=== PATIENT | female | born 1990 | race Caucasian/White ===

== ENCOUNTER 2020-12-24 21:53 | Emergency (ER) | payer OTHER ==
[~2020-12-24] VITALS: Ht 162.6 cm; Wt 95.3 kg
--- NOTE | 2020-12-24 22:00 | NUR ---
PT AAOX4. BIBSELF C/O SI WITH PLAN TO CUT WRIST. -HI. PLACED IN BED 14 ON MONITOR AND PULSE OX. AWAITING ER MD FOR EVAL. AWAITING ORDERS. SITTER AT BEDSIDE.
--- NOTE | 2020-12-24 22:01 | NUR ---
PT PROVIDED WITH WARM BLANKETS FOR COMFORT.
--- NOTE | 2020-12-24 22:12 | NUR ---
PIG FARMER AT BEDSIDE
--- NOTE | 2020-12-24 22:18 | NUR ---
CALLED FOR COVID SWAB
[2020-12-24 22:26] LABS: BASOPHILS # (AUTO) 0.1 K/uL (0.0-0.2); BASOPHILS % (AUTO) 0.8 % (0.0-2.0); EOSINOPHILS % (AUTO) 6.7 % (0.0-6.0); HEMATOCRIT 34 % (33-45); HEMOGLOBIN 11.9 g/dL (11.5-14.8); LYMPHOCYTES # (AUTO) 2.1 K/uL (0.8-4.8); LYMPHOCYTES % (AUTO) 23.6 % (20.0-44.0); MEAN CORPUSCULAR HGB CONC 35 g/dl (31.0-36.0); MEAN CORPUSCULAR VOLUME 92 fL (82-100); MONOCYTES # (AUTO) 0.7 K/uL (0.1-1.30); NEUTROPHILS # (AUTO) 5.5 K/uL (1.8-8.9); NEUTROPHILS % (AUTO) 60.9 % (43.0-81.0); PLATELET COUNT (AUTO) 166 K/uL (150-450); RED BLOOD CELL COUNT(AUTO) 3.69 MIL/uL (4.0-5.2)
[2020-12-24 22:44] LABS: CALCIUM, SERUM 8.7 mg/dL (8.5-10.1); CARBON DIOXIDE 28 mmol/L (21-32); CHLORIDE 105 mmol/L (98-107); CREATININE 0.7 mg/dL (0.6-1.3); GLUCOSE 92 mg/dL (74-106); POTASSIUM 4.1 mmol/L (3.5-5.1); SODIUM SERUM 140 mmol/L (136-145); UREA NITROGEN, BLOOD 10 mg/dL (7-18)
[2020-12-24 22:51] LABS: ALANINE AMINOTRANSFERASE 25 U/L (12-78); ALBUMIN 3.2 g/dL (3.4-5.0); ALKALINE PHOSPHATASE 117 U/L (46-116); ASPARTATE AMINOTRANSFERASE 16 U/L (15-37); BILIRUBIN,DIRECT 0.1 mg/dL (0.0-0.2); BILIRUBIN,TOTAL 0.3 mg/dL (0.2-1.0); TOTAL PROTEIN, SERUM 7.1 g/dL (6.4-8.2)
[2020-12-24 22:52] LABS: ACETAMINOPHEN < 2 ug/ml (10-30); ALCOHOL, BLOOD < 3 mg/dL (0-0)
[2020-12-24 23:47] LABS: BILIRUBIN,URINE Negative (NEGATIVE); COLOR,URINE YELLOW (YELLOW); LEUKOCYTE ESTERASE ,URINE Trace (NEGATIVE); NITRITE, URINE Negative (NEGATIVE); PROTEIN,URINE Negative (NEGATIVE); UGLUCOSE Negative (NEGATIVE); UROBILINOGEN,URINE 0.2 EU/dL (0.2)
--- NOTE | 2020-12-25 00:22 | NUR ---
PT PROVIDED WITH JUICE.
--- NOTE | 2020-12-25 00:33 | NUR ---
FACE SHEET AND CLINICALS WERE FAXED TO [facility]
--- NOTE | 2020-12-25 00:52 | NUR ---
CALLLED [facility] AND SPOKE TO ART, CLINICALS ARE REC'D
[2020-12-25 01:20] LABS: BACTERIA,URINE None seen /HPF (None Seen); RBC,URINE 0-2 /HPF (0-2); SQUAMOUS EPITHELIAL CELL,UR Few /HPF (None Seen); YEAST,URINE Few /HPF (None Seen)
--- NOTE | 2020-12-25 03:14 | NUR ---
ACCEPTED TO [facility] SEND PT AFTER 8AM MD: RICKI NUMBER FOR REPORT: [phone]
--- NOTE | 2020-12-25 03:26 | NUR ---
[facility] ARRANGED FOR 899
--- NOTE | 2020-12-25 07:46 | NUR ---
THE PATIENT IS SLEEPING IN ER BED #14. IN NO APPARENT DISTRESS. RESPIRATION REGULAR AND UNLABORED. WILL CONTINUE TO MONITOR THE PATIENT.
--- NOTE | 2020-12-25 07:58 | NUR ---
REPORT GIVEN TO NURSE JORDY FROM [facility]
--- NOTE | 2020-12-25 08:35 | NUR ---
THE PATIENT IS HAVING BREAKFAST. TOLERATES PROVIDED FOOD WELL.
--- NOTE | 2020-12-25 09:32 | NUR ---
CALLED [facility] NEW ETA 15 MINS PER OLINDA.
--- NOTE | 2020-12-25 10:09 | NUR ---
THE PATIENT IS TRANSFERED TO [facility] IN STABLE CONDITION VIA ARRANGED TRANSPO.
[2020-12-25 10:10] VITALS: BP 110/62
== END 2020-12-25 10:10 ==
LOC: ER 22:01
DX: R45.851 Suicidal ideations (principal); Z20.822 Contact with and (suspected) exposure to COVID-19; Z91.013 Allergy to seafood; F32.A Depression, unspecified; K21.9 Gastro-esophageal reflux disease without esophagitis
CPT/HCPCS: 36415; 80048; 80076; 80143; 80307; 80320; 81001; 84703; 85025; 87426; 99285; C9803; G0480

== ENCOUNTER 2020-12-29 00:36 | Emergency (ER) | payer OTHER ==
[~2020-12-29] VITALS: Ht 162.6 cm; Wt 95.3 kg
--- NOTE | 2020-12-29 00:50 | NUR ---
SHELLIE FROM [facility] C/O ABD PAIN. PATIENT ALERT AND ORIENTED X3. AMBULATORY WITH NON LABORED BREATHING. PLACED ON A MONITOR.
--- NOTE | 2020-12-29 00:56 | NUR ---
LINE ESTABLISHED BLOOD TAKEN AND SENT TO LAB.
[2020-12-29] MEDS ORDERED: KETOROLAC TROMETHAMINE INJ 30 MG/ML VIAL IV ONE (01:00)
[2020-12-29] MEDS ORDERED: IV NS 0.9% 500 ML BAG IV ONE (01:00)
[2020-12-29] MEDS ORDERED: ONDANSETRON HCL/PF 4 MG/2 ML VIAL IVP ONE (01:00)
--- NOTE | 2020-12-29 01:02 | NUR ---
URINE COLLECTED AND SENT TO THE LAB
[2020-12-29] MEDS ORDERED: KETOROLAC TROMETHAMINE 15 MG/ML VIAL ONE (01:12)
[2020-12-29] MEDS ORDERED: ONDANSETRON HCL/PF 4 MG/2 ML VIAL ONE (01:12)
[2020-12-29 01:13] LABS: BASOPHILS # (AUTO) 0.1 K/uL (0.0-0.2); BASOPHILS % (AUTO) 0.7 % (0.0-2.0); EOSINOPHILS % (AUTO) 6.3 % (0.0-6.0); HEMATOCRIT 34 % (33-45); HEMOGLOBIN 11.6 g/dL (11.5-14.8); LYMPHOCYTES # (AUTO) 2.1 K/uL (0.8-4.8); LYMPHOCYTES % (AUTO) 21.2 % (20.0-44.0); MEAN CORPUSCULAR HGB CONC 35 g/dl (31.0-36.0); MEAN CORPUSCULAR VOLUME 91 fL (82-100); MONOCYTES # (AUTO) 0.8 K/uL (0.1-1.30); MONOCYTES % (AUTO) 8.3 % (2.0-12.0); NEUTROPHILS # (AUTO) 6.4 K/uL (1.8-8.9); NEUTROPHILS % (AUTO) 63.5 % (43.0-81.0); PLATELET COUNT (AUTO) 162 K/uL (150-450)
[2020-12-29 01:22] LABS: BILIRUBIN,URINE Negative (NEGATIVE); COLOR,URINE LIGHT YELLOW (YELLOW); LEUKOCYTE ESTERASE ,URINE Trace (NEGATIVE); NITRITE, URINE Negative (NEGATIVE); PH,URINE 6.5 (5.0-8.0); PROTEIN,URINE Negative (NEGATIVE); UGLUCOSE Negative (NEGATIVE); UROBILINOGEN,URINE 0.2 EU/dL (0.2)
[2020-12-29 01:35] LABS: BACTERIA,URINE Moderate /HPF (None Seen); RBC,URINE 0-2 /HPF (0-2); SQUAMOUS EPITHELIAL CELL,UR Moderate /HPF (None Seen); YEAST,URINE Moderate /HPF (None Seen)
[2020-12-29 01:58] LABS: ALBUMIN 3.1 g/dL (3.4-5.0); BILIRUBIN,DIRECT 0.1 mg/dL (0.0-0.2); BILIRUBIN,TOTAL 0.3 mg/dL (0.2-1.0); CREATININE 0.8 mg/dL (0.6-1.3); TOTAL PROTEIN, SERUM 7.1 g/dL (6.4-8.2)
--- NOTE | 2020-12-29 02:26 | NUR ---
FACESHEET AND CLINICALS FAXED TO [facility].
--- NOTE | 2020-12-29 06:39 | NUR ---
Per Margy at [facility], pt was d/c from [facility], but can come back, provided that pt wait for female bed to open up
--- NOTE | 2020-12-29 09:02 | NUR ---
The patient is having breakfast. Tolerates food well.
--- NOTE | 2020-12-29 09:16 | NUR ---
Alert and oriented x4. Denies pain. In room air and denies SOB. Respiration regular and unlabored. The patient denies SI/HI. The patient`s vital signs stable.
[2020-12-29 09:31] VITALS: BP 126/84
== END 2020-12-29 09:31 | disposition home or self-care (01) ==
LOC: ER 00:37
DX: R10.11 Right upper quadrant pain (principal); R11.2 Nausea with vomiting, unspecified; K21.9 Gastro-esophageal reflux disease without esophagitis; F41.9 Anxiety disorder, unspecified; F32.9 Major depressive disorder, single episode, unspecified; F90.9 Attention-deficit hyperactivity disorder, unspecified type; G43.909 Migraine, unspecified, not intractable, without status migrainosus; Z91.018 Allergy to other foods
CPT/HCPCS: 36415; 74176; 80048; 80076; 81001; 83690; 84703; 85025; 87086; 96374; 96375; 99284; J1885; J2405; J7040

== ENCOUNTER 2021-01-01 15:36 | Emergency (ER) | payer OTHER ==
[~2021-01-01] VITALS: Ht 162.6 cm; Wt 95.3 kg
[2021-01-01 17:45] LABS: BASOPHILS # (AUTO) 0.1 K/uL (0.0-0.2); BASOPHILS % (AUTO) 0.6 % (0.0-2.0); EOSINOPHILS % (AUTO) 4.8 % (0.0-6.0); HEMATOCRIT 35 % (33-45); LYMPHOCYTES # (AUTO) 1.9 K/uL (0.8-4.8); LYMPHOCYTES % (AUTO) 19.7 % (20.0-44.0); MEAN CORPUSCULAR HGB CONC 34 g/dl (31.0-36.0); MEAN CORPUSCULAR VOLUME 93 fL (82-100); MONOCYTES # (AUTO) 0.6 K/uL (0.1-1.30); MONOCYTES % (AUTO) 6.7 % (2.0-12.0); NEUTROPHILS # (AUTO) 6.5 K/uL (1.8-8.9); NEUTROPHILS % (AUTO) 68.2 % (43.0-81.0); PLATELET COUNT (AUTO) 172 K/uL (150-450); RED BLOOD CELL COUNT(AUTO) 3.77 MIL/uL (4.0-5.2); WHITE BLOOD COUNT (AUTO) 9.5 K/uL (4.3-11.0)
[2021-01-01] MEDS ORDERED: TRAMADOL HCL 50 MG TABLET ONE (17:49)
[2021-01-01] MEDS: TRAMADOL HCL 50 MG TABLET PO ONE (17:53)
[2021-01-01 17:54] LABS: CALCIUM, SERUM 8.8 mg/dL (8.5-10.1); CARBON DIOXIDE 25 mmol/L (21-32); CHLORIDE 105 mmol/L (98-107); CREATININE 0.8 mg/dL (0.6-1.3); GLUCOSE 86 mg/dL (74-106); POTASSIUM 3.7 mmol/L (3.5-5.1); SODIUM SERUM 141 mmol/L (136-145); UREA NITROGEN, BLOOD 11 mg/dL (7-18)
[2021-01-01 18:08] LABS: ALANINE AMINOTRANSFERASE 27 U/L (12-78); ALBUMIN 3.4 g/dL (3.4-5.0); ALKALINE PHOSPHATASE 99 U/L (46-116); ASPARTATE AMINOTRANSFERASE 24 U/L (15-37); BILIRUBIN,DIRECT 0.1 mg/dL (0.0-0.2); BILIRUBIN,TOTAL 0.4 mg/dL (0.2-1.0); TOTAL PROTEIN, SERUM 7.6 g/dL (6.4-8.2)
[2021-01-01 18:11] LABS: BILIRUBIN,URINE Negative (NEGATIVE); COLOR,URINE YELLOW (YELLOW); LEUKOCYTE ESTERASE ,URINE Negative (NEGATIVE); NITRITE, URINE Negative (NEGATIVE); PH,URINE 5.5 (5.0-8.0); PROTEIN,URINE Negative (NEGATIVE); UGLUCOSE Negative (NEGATIVE); UROBILINOGEN,URINE 0.2 EU/dL (0.2)
[2021-01-01 18:13] LABS: ACETAMINOPHEN < 2 ug/ml (10-30); ALCOHOL, BLOOD < 3 mg/dL (0-0)
[2021-01-01 18:14] LABS: BACTERIA,URINE Rare /HPF (None Seen); SQUAMOUS EPITHELIAL CELL,UR Few /HPF (None Seen); WBC,URINE NONE SEEN /HPF (0-3)
--- NOTE | 2021-01-01 19:35 | NUR ---
COVID SWAB COLLECTED AND SENT TO LAB
--- NOTE | 2021-01-01 20:14 | NUR ---
FAXED CLINICALS TO [facility]
[2021-01-01] MEDS: QUETIAPINE FUMARATE 100 MG TABLET PO ONE (23:32)
[2021-01-01] MEDS: QUETIAPINE FUMARATE 100 MG TABLET ONE (23:44)
--- NOTE | 2021-01-02 00:42 | NUR ---
REC'D A CALL FROM ART AT [facility]. PT GOT ACCEPTED AT [facility] BY DR VALDEZ, GOING TO UNIT 2. # FOR REPORT: [phone] "PLEASE ARRANGE TRANSPORTATION FOR AFTER 1100"
--- NOTE | 2021-01-02 00:47 | NUR ---
[facility] ETA: 1100
--- NOTE | 2021-01-02 02:15 | NUR ---
PT SLEEPING, BREATHING EVENLY AND UNLABORED,VSS
--- NOTE | 2021-01-02 04:15 | NUR ---
Patient is resting comfortably in bed with eyes closed. Easily aroused. VSS
--- NOTE | 2021-01-02 06:10 | NUR ---
CALLED FOR REPORT. NOTIFIED TO CALL AFTER 0800HRS
[2021-01-02 11:05] VITALS: BP 130/70
--- NOTE | 2021-01-02 11:21 | NUR ---
REPORT GIVEN TO KIKI AT [facility]. PT AWAITING TRANSFER TO FLOOR.
== END 2021-01-02 11:25 ==
LOC: ER 15:39
DX: R45.851 Suicidal ideations (principal); G89.29 Other chronic pain; M54.9 Dorsalgia, unspecified; Z20.822 Contact with and (suspected) exposure to COVID-19; M19.90 Unspecified osteoarthritis, unspecified site; J45.909 Unspecified asthma, uncomplicated; F90.9 Attention-deficit hyperactivity disorder, unspecified type; Z91.013 Allergy to seafood
CPT/HCPCS: 36415; 80048; 80076; 80143; 80307; 80320; 81001; 84703; 85025; 87426; 99285; C9803; G0480

== ENCOUNTER 2021-06-10 22:28 | Emergency (ER) | payer OTHER ==
[~2021-06-10] VITALS: Ht 165.1 cm; Wt 103.9 kg
--- NOTE | 2021-06-11 01:35 | NUR ---
BIBS. TO ER BED 14. AAOX4. NOT IN RESP DISTRESS. AMBULATORYON STEADY GAIT. CAME IN FOR MEDICAL CLEARANCE BECAUSE SHE IS SEEKING VOLUNTARY ADMISSION FOR HAVING SUICIDAL THOUGHTS. PT REPORTS THINKING OF RUNNING INTO TRAFFIC OR JUMP OF A BRIDGE. DENIES HOMICIDAL IDEATION. PT IS GOWN, BELONGINGS PLACED IN LOCKER LOCATED IN UTILITY ROOM. SITTER WITHIN SIGHT. AWAITING MD FOR EVAL. URINE COLLECTED, COVID SWAB DONE AND SENT TO LAB.
--- NOTE | 2021-06-11 01:36 | NUR ---
URINE SPECIMEN COLLECTED AND SENT TO LAB.
[2021-06-11 02:30] LABS: BASOPHILS # (AUTO) 0.1 K/uL (0.0-0.2); BASOPHILS % (AUTO) 0.7 % (0.0-2.0); EOSINOPHILS % (AUTO) 8.5 % (0.0-6.0); HEMATOCRIT 37 % (33-45); HEMOGLOBIN 12.8 g/dL (11.5-14.8); LYMPHOCYTES # (AUTO) 2.7 K/uL (0.8-4.8); LYMPHOCYTES % (AUTO) 27.9 % (20.0-44.0); MEAN CORPUSCULAR HGB CONC 35 g/dl (31.0-36.0); MEAN CORPUSCULAR VOLUME 87 fL (82-100); MONOCYTES # (AUTO) 0.7 K/uL (0.1-1.30); MONOCYTES % (AUTO) 7.3 % (2.0-12.0); NEUTROPHILS # (AUTO) 5.3 K/uL (1.8-8.9); NEUTROPHILS % (AUTO) 55.6 % (43.0-81.0); PLATELET COUNT (AUTO) 185 K/uL (150-450); RED BLOOD CELL COUNT(AUTO) 4.25 MIL/uL (4.0-5.2); WHITE BLOOD COUNT (AUTO) 9.5 K/uL (4.3-11.0)
[2021-06-11 03:05] LABS: CALCIUM, SERUM 8.8 mg/dL (8.5-10.1); CARBON DIOXIDE 24 mmol/L (21-32); CHLORIDE 104 mmol/L (98-107); CREATININE 0.9 mg/dL (0.6-1.3); GLUCOSE 106 mg/dL (74-106); POTASSIUM 3.7 mmol/L (3.5-5.1); SODIUM SERUM 138 mmol/L (136-145); UREA NITROGEN, BLOOD 17 mg/dL (7-18)
[2021-06-11 03:10] LABS: ALANINE AMINOTRANSFERASE 24 U/L (12-78); ALBUMIN 3.4 g/dL (3.4-5.0); ALCOHOL, BLOOD < 3 mg/dL (0-0); ALKALINE PHOSPHATASE 103 U/L (46-116); ASPARTATE AMINOTRANSFERASE 12 U/L (15-37); BILIRUBIN,TOTAL 0.3 mg/dL (0.2-1.0); TOTAL PROTEIN, SERUM 7.1 g/dL (6.4-8.2)
[2021-06-11 03:25] LABS: BILIRUBIN,DIRECT 0.1 mg/dL (0.0-0.2)
[2021-06-11 04:29] LABS: ACETAMINOPHEN < 2 ug/ml (10-30)
[2021-06-11 04:32] LABS: COLOR,URINE YELLOW (YELLOW)
[2021-06-11 04:33] LABS: BILIRUBIN,URINE NEGATIVE (NEGATIVE); LEUKOCYTE ESTERASE ,URINE NEGATIVE (NEGATIVE); NITRITE, URINE NEGATIVE (NEGATIVE); PROTEIN,URINE NEGATIVE (NEGATIVE); UGLUCOSE NEGATIVE (NEGATIVE); UROBILINOGEN,URINE 0.2 EU/dL (0.2)
[2021-06-11 04:35] LABS: BACTERIA,URINE None seen /HPF (None Seen); RBC,URINE 0-2 /HPF (0-2); SQUAMOUS EPITHELIAL CELL,UR Moderate /HPF (None Seen); WBC,URINE 0-2 /HPF (0-3)
--- NOTE | 2021-06-11 05:07 | NUR ---
faxed face sheet and clinincals to [facility]
--- NOTE | 2021-06-11 05:12 | NUR ---
SUSAN AT [facility] HAS REC'D THE FAX. CONFIRMED
--- NOTE | 2021-06-11 08:59 | NUR ---
CALLED [facility] FOR UPDATE REGARDING PT ACCEPTANCE AND WAS NOTIFIED THAT CLINICAL PACKET WAS RECEIEVED. NOW AWAITING FEEDBACK FROM [employer] REPORTING CONSULTANT.
--- NOTE | 2021-06-11 12:03 | NUR ---
[facility] AT 1530. ACCEPTING: DR ROBISON # FOR REPORT: [phone] VÍCTOR
--- NOTE | 2021-06-11 12:09 | NUR ---
PER VÍCTOR OF [facility], CALL [phone] UNIT 2 FOR REPORT
--- NOTE | 2021-06-11 12:13 | NUR ---
REPORT GIVEN TO ALEYDA BLAIR OF UNIT 2 [facility]
--- NOTE | 2021-06-11 12:13 | NUR ---
PT GOT [facility]PETED TO [facility] NUMBER FOR REPORT [phone] CARE OF DR. ROBISON
--- NOTE | 2021-06-11 12:16 | NUR ---
ETA FOR RETURNS PROCESSOR [id number]
--- NOTE | 2021-06-11 12:32 | NUR ---
LUNCH TRAY PROVIDED. TOLERATED WELL
[2021-06-11 15:52] VITALS: BP 132/64
--- NOTE | 2021-06-11 16:12 | NUR ---
PATIENT PICKED UP BY [facility] IN STABLE CONDITION. WOULD BE TRANSFERRED TO [facility]. ALL BELONGINGS GIVEN BACK TO THE PATIENT BEFORE LEAVING FACILITY. ALL DOCUMENT PROVIDED TO BE GIVEN TO [facility].
== END 2021-06-11 16:26 ==
LOC: ER 22:30
DX: R45.851 Suicidal ideations (principal); J45.909 Unspecified asthma, uncomplicated; Z91.013 Allergy to seafood; K21.9 Gastro-esophageal reflux disease without esophagitis; Z20.822 Contact with and (suspected) exposure to COVID-19
CPT/HCPCS: 36415; 80048; 80076; 80143; 80307; 80320; 81001; 84703; 85025; 87426; 99285; C9803; G0480